=== PATIENT | male | born 1970 | race Two or more races ===

== ENCOUNTER 2024-11-26 16:25 | Emergency (ER) | payer MEDICAID, OTHER ==
[~2024-11-26] VITALS: Ht 182.9 cm; Wt 97.8 kg
[2024-11-26] MEDS ORDERED: CEFD300C2 PO (16:46)
--- NOTE | 2024-11-26 16:56 | ED.PDOC ---
History of Present Illness HPI Comments 54 y/o M, with PMhx of DM and ESRD presents to the ED for CC of wound check. Patient states, he has a friction burn to his left planter foot which has not resolved xdays. Patient reports, being seen [facility] for symptoms and being placed on antibiotics however, symptoms have persisted. Patient denies active bleeding to site, discharge to site, foot or leg swelling, or fever. No other symptoms or modifying factors present at this time. Chief Complaint: Wound Check Time Seen by MD: 16:50 Reviewed Notes: Nurses Notes, Medications, Allergies Home Meds Active Scripts Cefdinir (Cefdinir) 300 Mg Cap, 1 CAP PO BID for 7 Days, #14 CAP Prov:JESSICA LEVINE MD 11/26/24 Information Source: Patient Mode of Arrival: Ambulatory Severity: Moderate Timing: Days Duration: Since onset Prehospital treatment: None Past Medical History PAST MEDICAL HISTORY: DM, ESRD Surgical History: Denies all surgeries Family History Family History: Unknown Social History Smoker: Non-Smoker Alcohol: Denies ETOH Use Drugs: Denies Drug Use Lives In: Home Constitutional: denies: chills, diaphoresis, fatigue, fever, malaise, sweats, weakness, others EENTM: denies: blurred vision, double vision, ear bleeding, ear discharge, ear drainage, ear pain, ear ringing, eye pain, eye redness, hearing loss, mouth pain, mouth swelling, nasal discharge, nose bleeding, nose congestion, nose pain, photophobia, tearing, throat pain, throat swelling, voice changes, others Respiratory: denies: cough, hemoptysis, orthopnea, SOB at rest, shortness of breath, SOB with excertion, stridor, wheezing, others Cardiovascular: denies: chest pain, dizzy spells, diaphoresis, Dyspnea on exertion, edema, irregular heart beat, left arm pain, lightheadedness, palp itations, PND, syncope, others Gastrointestinal: denies: abdomen distended, abdominal pain, blood streaked bowels, constipated, diarrhea, dysphagia, difficulty swallowing, hematemesis, melena, nausea, poor appetite, poor fluid intake, rectal bleeding, rectal pain, vomiting, others Genitourinary: denies: burning, dysuria, flank pain, frequency, hematuria, incontinence, penile discharge, penile sore, pain, testicle pain, testicle swelling, urgency, others Neurological: denies: dizziness, fainting, headache, left sided numbness, left sided weakness, numbness, paresthesia, pre-existing deficit, right sided numbness, right sided weakness, seizure, speech problems, tingling, tremors, weakness, others Musculoskeletal: reports: others (LEFT FOOT PAIN); denies: back pain, gout, joint pain, joint swelling, muscle pain, muscle stiffness, neck pain Integumetry: denies: bruises, change in color, change in hair/nails, dryness, laceration, lesions, lumps, rash, wounds, others Allergic/Immunocompromised: denies: Difficulty Healing, Frequent Infections, Hives, Itching, others Hematologic/Lymphatic: denies: anemia, blood clots, easy bleeding, easy bruising, swollen glands, others Endocrine: denies: excessive hunger, excessive sweating, excessive thirst, excessive urination, flushing, intolerance to cold, intolerance to heat, unexplained weight gain, unexplained weight loss, others Psychiatric: denies: anxiety, bipolar disorder, depression, hopeless, panic disorder, schizophrenia, sleepless, suicidal, others All Other Systems: Reviewed and Negative Physical Exam General Appearance: No Apparent Distress HEENT: Normal ENT Inspection, PERRL/EOMI Neck: Full Range of Motion, Non-Tender, Normal, Normal Inspection Respiratory: Chest Non-Tender, Lungs Clear, No Accessory Muscle Use, No Respiratory Distress, Normal Breath Sounds Cardiovascular: No Edema, No JVD, No Murmur, No Gallop, Normal Peripheral Pulses, Regular Rate/Rhythm Breast Exam: Deferred Gastrointestinal: No Organomegaly, Non Tender, No Pulsatile Mass, Normal Bowel Sounds, Soft Genitalia: Deferred Pelvic: Deferred Rectal: Deferred Extremities: No calf tenderness, Normal capillary refill, Normal inspection, Normal range of motion, Non-tender, No pedal edema Musculoskeletal : Location: Left Extremity Location: Foot, Great Toe, Toe 2, Toe 3, Toe 4 Apperance: Swelling, Limited ROM, Tenderness: Mild, NOT DONE (Friction rub possible burn on all the phalanges on the toes which arediscolored went to the urgent care was treated but is healing slowly) Neurologic: Alert, lurer II-XII nml as Tested, No Motor Deficits, Normal Affect, Normal Mood, No Sensory Deficits Cerebellar Function: Normal Reflexes: Normal Skin: Diaphoresis Peripheral Pulses: 1+ carotid (R), 1+ carotid (L) Lymphatic: No Adenopathy Was a procedure done? 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 Education/Counseling: Diagnosis, Treatment, Prognosis, Need For Follow Up Family Education/Counseling: Diagnosis, Treatment, Prognosis, Need For Follow Up, No Family Present Departure 1 Departure Time of Disposition: 17:03 Impression: Primary Impression: Burn of all toes of left foot Disposition: 01 HOME / SELF CARE / HOMELESS Condition: Fair e-Prescriptions Cefdinir (Cefdinir) 300 Mg Cap 1 CAP PO BID for 7 Days, #14 CAP Prov: JESSICA LEVINE MD 11/26/24 Discharged With: Self Critical Care Note Critical Care Time?: No Stability Stability form required: No Heart Score Heart Score: Heart Score Response (Comments) Value History N/A 0 EKG N/A 0 Age 45-64 1 Risk Factors 1 or 2 risk factors 1 Troponin N/A 0 Total 2 I personally scribed for JESSICA LEVINE MD ([email or web address]) on 11/26/24 at 16:56. Electronically submitted by Belia Carlson ([email or web address]). JESSICA LEVINE MD Nov 26, 2024 16:56
[2024-11-26 17:27] VITALS: BP 115/71; PULSE 92; RESP 16; TEMP 98.1; O2SAT 96
== END 2024-11-26 17:28 | disposition home or self-care (01) ==
LOC: ER 16:25
DX: T25.032A Burn of unspecified degree of left toe(s) (nail), initial encounter (principal); X08.8XXA Exposure to other specified smoke, fire and flames, initial encounter; Y93.89 Activity, other specified; Y92.89 Other specified places as the place of occurrence of the external cause; Y99.8 Other external cause status; E11.22 Type 2 diabetes mellitus with diabetic chronic kidney disease; N18.6 End stage renal disease; Z99.2 Dependence on renal dialysis; Z79.899 Other long term (current) drug therapy
CPT/HCPCS: 82947; 82962

== ENCOUNTER 2025-02-25 15:06 | Inpatient (IN) | payer MEDICAID ==
[~2025-02-25] VITALS: Ht 182.9 cm; Wt 95.2 kg
[~2025-02-25 15:06] MED LIST: CEFD300C2 PO
--- NOTE | 2025-02-25 15:26 | ECG ---
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
--- NOTE | 2025-02-25 16:05 | ED.PDOC ---
SOB-HPI HPI Comments 55y M who presents to the ED for chief complaint of flu-like symptoms. Pt states he has been having flu-like symptoms since Sunday. Pt has been having fever 102 F with chills, and states he took Tylenol and fever broke Sunday. Pt states Sunday, he started to have diarrhea with associated UTI symptoms including dysuria, urgency and frequency with associated abdominal cramping. Pt states today, he noticed blood in his urine stream and came to the ED for further evaluation. Pt in the ED, states he has history of DM, CKD stage 4 not on dialysis HTN and HLD and states due to his recent symptoms, he has not been taking his regular medications. Pt has otherwise stable vitals in the ED. Pt denies any other symptoms at this time. Chief Complaint: Flu like Time Seen by MD: 16:01 Primary Care Provider: Tomi Galarza notes: Medications, Allergies Information Source: Patient, Relative Mode of Arrival: Ambulatory Brought in by: daughter Severity: Moderate Timing: Days Duration: Since onset PE Risk Factors: None History of: Recent URI Prehospital treatment: None Modifying Factors: Nothing Associated Signs and Symptoms: Fever If cough with SOB: Non-Productive Past Medical History PAST MEDICAL HISTORY: CKF, DM, ESRD, High Lipids, HTN Surgical History: Denies all surgeries Family History Family History: Family hx of DM, Family hx of Cancer Social History Smoker: Non-Smoker Alcohol: Denies ETOH Use Drugs: Denies Drug Use Lives In: Home Constitutional: reports: chills, fever; denies: diaphoresis, fatigue, malaise, sweats, weakness, others EENTM: denies: blurred vision, double vision, ear bleeding, ear discharge, ear drainage, ear pain, ear ringing, eye pain, eye redness, hearing loss, mouth pain, mouth swelling, nasal discharge, nose bleeding, nose congestion, nose pain, photophobia, tearing, throat pain, throat swelling, voice changes, others Respiratory: denies: cough, hemoptysis, orthopnea, SOB at rest, shortness of breath, SOB with excertion, stridor, wheezing, others Cardiovascular: denies: chest pain, dizzy spells, diaphoresis, Dyspnea on exertion, edema, irregular heart beat, left arm pain, lightheadedness, palpitations, PND, syncope, others Gastrointestinal: reports: abdominal pain, diarrhea; denies: abdomen distended, blood streaked bowels, constipated, dysphagia, difficulty swallowing, hematemesis, melena, nausea, poor appetite, poor fluid intake, rectal bleeding, rectal pain, vomiting, others Genitourinary: reports: dysuria, frequency; denies: burning, flank pain, hematuria, incontinence, penile discharge, penile sore, pain, testicle pain, testicle swelling, urgency, others Neurological: denies: dizziness, fainting, headache, left sided numbness, left sided weakness, numbness, paresthesia, pre-existing deficit, right sided numbness, right sided weakness, seizure, speech problems, tingling, tremors, weakness, others Musculoskeletal: denies: back pain, gout, joint pain, joint swelling, muscle pain, muscle stiffness, neck pain, others Integumetry: denies: bruises, change in color, change in hair/nails, dryness, laceration, lesions, lumps, rash, wounds, others Allergic/Immunocompromised: denies: Difficulty Healing, Frequent Infections, Hives, Itching, others Hematologic/Lymphatic: denies: anemia, blood clots, easy bleeding, easy bruising, swollen glands, others Endocrine: denies: excessive hunger, excessive sweating, excessive thirst, excessive urination, flushing, intolerance to cold, intolerance to heat, unexplained weight gain, unexplained weight loss, others Psychiatric: denies: anxiety, bipolar disorder, depression, hopeless, panic disorder, schizophrenia, sleepless, suicidal, others All Other Systems: Reviewed and Negative Physical Exam General Appearance: Moderate Distress HEENT: Normal ENT Inspection, Pharynx Normal, TMs Normal Neck: Full Range of Motion, Non-Tender, Normal, Normal Inspection Respiratory: Chest Non-Tender, Lungs Clear, No Accessory Muscle Use, No Respiratory Distress, Normal Breath Sounds Cardiovascular: No Edema, No JVD, No Murmur, No Gallop, Normal Peripheral Pulses, Regular Rate/Rhythm Breast Exam: Deferred Gastrointestinal: No Organomegaly, Non Tender, No Pulsatile Mass, Normal Bowel Sounds, Soft Genitalia: Deferred Pelvic: Deferred Rectal: Deferred Extremities: No calf tenderness, Normal capillary refill, Normal inspection, Normal range of motion, Non-tender, No pedal edema Musculoskeletal : Apperance: Normal Neurologic: Alert, bank operations officer II-XII nml as Tested, No Motor Deficits, Normal Affect, Normal Mood, No Sensory Deficits Cerebellar Function: Normal Reflexes: Normal Skin: Dry, Normal Color, Warm Lymphatic: No Adenopathy EKG EKG : Pulse Rate (adult): 90 [place]: Normal Cardiac Rhythm: NSR Block: None Hypertrophy: None ST: Normal Was a procedure done? Was a procedure done?: No Differential Dx Differential Diagnosis: Bronchitis, CHF, Pneumonia, URI Comments COVID, Influenza A and B, UTI, CKD, dehydration, uremia, X-Ray, Labs, Meds, VS Vital Signs Date Time Temp Pulse Resp B/P (MAP) Pulse Ox O2 Delivery O2 Flow Rate FiO2 02/25/25 16:05 90 02/25/25 15:16 90 02/25/25 15:08 98.7 93 18 121/77 98 98.7 Lab Test 02/25/25 18:31 02/25/25 16:01 02/25/25 15:21 Range/Units SARS-CoV-2 Antigen (Rapid) Negative NEGATIVE White Blood Count 8.3 4.4-10.8 10^3/uL Red Blood Count 4.34 L 4.5-5.90 10^6/uL Hemoglobin 12.6 L 13.5-17.5 g/dL Hematocrit 37.0 L 41.0-53.0 % Mean Corpuscular Volume 85.1 80.0-100.0 fL Mean Corpuscular Hemoglobin 29.0 28.0-32.0 pg Mean Corpuscular Hemoglobin Concent 34.0 32.0-36.0 g/dL Red Cell Distribution Width 14.9 H 11.8-14.3 % Platelet Count 219 140-450 10^3/uL Mean Platelet Volume 8.6 6.9-10.8 fL Neutrophils (%) (Auto) 37.0-80.0 % Lymphocytes (%) (Auto) 10.0-50.0 % Monocytes (%) (Auto) 0.0-12.0 % Basophils (%) (Auto) 0.0-2.0 % Neutrophils # (Auto) 1.6-8.6 10 ^3/uL Lymphocytes # (Auto) 0.4-5.4 10 ^3/uL Monocytes # (Auto) 0-1.3 10 ^3/uL Differential Total Cells Counted Pending Neutrophils % (Manual) Pending Band Neutrophils % (Manual) Pending Lymphocytes % (Manual) Pending Monocytes % (Manual) Pending Eosinophils % (Manual) Pending Basophils % (Manual) Pending Metamyelocytes % (manual) Pending Myelocytes % (Manual) Pending Promyelocytes % (Manual) Pending Blast Cells % (Manual) Pending Reactive Lymphocytes Pending Platelet Estimate Pending Sodium Level 134 L 136-145 mmol/L Potassium Level 4.1 3.5-5.1 mmol/L Chloride Level 102 98-107 mmol/L Carbon Dioxide Level 22 20-31 mmol/L Anion Gap 10 5-15 Blood Urea Nitrogen 54 H 9-23 mg/dL Creatinine 3.51 H 0.700-1.30 mg/dL Glomerular Filtration Rate Calc 20 >90 mL/min BUN/Creatinine Ratio 15.4 10.0-20.0 Serum Glucose 259 H 74-106 mg/dL Calcium Level 8.1 L 8.7-10.4 mg/dL POC Glucose 280 H 70-106 mg/dl Current Medications Medications (Trade) Dose Ordered Sig/Ilene Route Start Time Stop Time Status Last Admin Sodium Chloride 500 ml @ 500 mls/hr Q1H ONCE IV 02/25/25 16:00 02/25/25 16:59 DC 02/25/25 17:50 Time of 1ST Reevaluation: 16:30 Reevaluation 1ST: Unchanged Patient Education/Counseling: Diagnosis, Treatment, Prognosis Family Education/Counseling: Diagnosis, Treatment, Prognosis SEPSIS Sepsis Screen Date sepsis recognized/suspect: Feb 25, 2025 Time Sepsis recognized/suspect: 1510 Recent Procedure: No On Antibiotic Therapy: No Respiratory Rate >20: No Heart Rate >90: Yes Temp<36 C (96.8 F) or >38.3 C: No SBP <90 or MAP <65 mmHG: No New Acute Mental Status Change: No Is the patient on CPAP, BIPAP,: No Physician Orders Complete Blood Count (02/25/25 15:47) Urinalysis (02/25/25 15:47) Heplock Iv (02/25/25 15:47) Manual Differential (02/25/25 16:01) Vital Signs Date Time Temp Pulse Resp B/P (MAP) Pulse Ox O2 Delivery O2 Flow Rate FiO2 02/25/25 16:05 90 02/25/25 15:16 90 02/25/25 15:08 98.7 93 18 121/77 98 98.7 Laboratory Tests Test 02/25/25 16:01 White Blood Count 8.3 10^3/uL (4.4-10.8) Medications Medications Dose Ordered Sig/Ilene Route Start Time Stop Time Status Last Admin Dose Admin Sodium Chloride 500 ml @ 500 mls/hr Q1H ONCE IV 02/25/25 16:00 02/25/25 16:59 DC 02/25/25 17:50 Departure 1 Departure Time of Disposition: 19:20 Impression: Primary Impression: Generalized weakness Additional Impressions: Autonomic dysfunction Uncontrolled diabetes mellitus Qualified Codes: E13.65 - Other specified diabetes mellitus with hyperglycemia ESRD due to hypertension Disposition: ADMITTED INPATIENT Admit to: Med Surg Condition: Fair Critical Care Note Critical Care Time?: No Stability Stability form required: Yes Unstable for transfer: ED Physician Assesment (Clinical assesment) Heart Score Heart Score: Heart Score Response (Comments) Value History N/A 0 EKG N/A 0 Age N/A 0 Risk Factors N/A 0 Troponin N/A 0 Total 0 I personally scribed for DESIRAE GARCIA MD ([email or web address]) on 02/25/25 at 16:05. Electronically submitted by Nirmala James ([email or web address]). DESIRAE GARCIA MD Feb 25, 2025 16:05
[2025-02-25 16:32] LABS: Hematocrit 37.0 % (41.0-53.0); Hemoglobin 12.6 g/dL (13.5-17.5); Mean Corpuscular Hemoglobin 29.0 pg (28.0-32.0); Mean Corpuscular Volume 85.1 fL (80.0-100.0)
[2025-02-25 16:35] LABS: Chloride 102 mmol/L (98-107); Potassium 4.1 mmol/L (3.5-5.1)
[2025-02-25 16:36] LABS: Anion Gap 10 (5-15); Carbon Dioxide 22 mmol/L (20-31)
[2025-02-25 16:37] LABS: Calcium 8.1 mg/dL (8.7-10.4); Sodium 134 mmol/L (136-145)
[2025-02-25 16:41] LABS: BUN/Creatinine Ratio 15.4 (10.0-20.0)
[2025-02-25 16:42] LABS: Blood Urea Nitrogen 54 mg/dL (9-23); Glucose 259 mg/dL (74-106)
[2025-02-25] MEDS: SODIUM CHLORIDE 0.9% 500 ML IV ONE (17:50)
[2025-02-25 19:15] LABS: COVID19 ANTIGEN SOFIA FIA NEGATIVE (NEGATIVE)
[2025-02-25 19:26] LABS: Anisocytosis Slight; Total Cells Counted 100.0 (100)
--- NOTE | 2025-02-25 22:17 | DVH ---
CLINICAL HISTORY: Coughing and shortness of breath TECHNIQUE: Chest 2 views of the chest were obtained. COMPARISON: None FINDINGS: The heart size and pulmonary vasculature are normal. The lungs are clear. No pleural effusion is pres ent. IMPRESSION: NO ACUTE CARDIOPULMONARY PROCESS.
[2025-02-25 22:32] LABS: Alanine Aminotransferase 38.0 U/L (7-40); Alkaline Phosphatase 87.0 U/L (46-116); Magnesium 2.5 mg/dL (1.6-2.6); Total Protein 7.8 g/dL (5.7-8.2)
[2025-02-25 22:33] LABS: Albumin 4.0 g/dL (3.2-4.8); Bilirubin, Direct 0.2 mg/dL (<0.3); Bilirubin, Total 0.5 mg/dL (0.2-1.0)
[2025-02-25] MEDS ORDERED: ACETAMINOPHEN 325 MG TAB PO PRN (22:45)
[2025-02-25] MEDS: SODIUM CHLORIDE 0.9% 1,000 ML IV ONE (22:45)
--- NOTE | 2025-02-25 23:05 | DVHHPRES ---
History of Present Illness Resident Creating Document: YOHANA BECKMAN RESIDENT History of Present Illness Mr. Clemons is a 55-year-old male with prior medical history of hypertension, type 2 diabetes mellitus, CKD stage 4, and hyperlipidemia who presents to the ED with chief complaint of flu-like symptoms. The patient states that on Sunday he had sudden onset of chills, fever measured at 102 F, persistent diarrhea, to medical episodes, body aches, and fatigue. He states these symptoms have slightly improved however he continues to have multiple episodes of diarrhea and achy generalized abdominal pain, intensity 7/10, without aggravating or relieving factors every day, reporting more than 8 episodes of diarrhea today alone. Additionally, he states to have dysuria, strong smelling urine, and changes in urinary color. He denies chest pain, rectal bleeding, palpitations, loss of consciousness, nausea, persistent vomiting, further febrile episodes, and other symptoms. Due to his symptoms and persistence of diarrhea the sought patient sought medical care at the emergency department. On evaluation in the ED, the patient was afebrile and vitals were stable. Initial labs show normocytic anemia, elevated monocytes, mild hyponatremia, creatinine 3.51, BUN 54, hyperglycemia, hypophosphatemia, and A1c of 7.5. UA is significant for UTI. The patient is influenza A, B, and COVID negative. Chest x-ray shows no acute cardiopulmonary process. the patient was started on IV antibiotics, IV Zofran, and IV fluids. He was admitted for further workup and monitoring. Cardiovascular: HTN, hyperipidemia Renal/: Chronic renal insuff Endocrine: Diabetes Past Surgical History: None Family History: None Smoke: No ALCOHOL: none Drugs: Marijuana (Refers occasional edible use) Lives: with Family Domestic Violence: Neg Review of Systems Review of Systems Constitutional: Refers 7 lb weight loss since Sunday and general fatigue, Denies fever and chills. HEENT: Denies changes in vision and hearing. Respiratory referss shortness of breath denies cough Cardiovascular: Denies chest discomfort or palpitations GI: Refers abdominal pain and persistent diarrhea Denies abdominal distention : Refers dysuria denies urinary frequency. Musculoskeletal: Denies symptoms Skin: Denies rash and pruritus. Neurological: denies dizziness headache vision or hearing problems Allergies: Coded Allergies: Ciprofloxacin (Verified Allergy, Unknown, 02/26/25) Lisinopril (Verified Allergy, Unknown, 11/26/24) Medications Current Medications Medications Dose Ordered Sig/Ilene Route Start Time Stop Time Status Last Admin Dose Admin Acetaminophen 325 mg Q4HP PRN PO 02/25/25 22:45 Pantoprazole Sodium 40 mg DAILY IV 02/26/25 10:00 Exam Vital Signs Vital Signs Date Time Temp Pulse Resp B/P (MAP) Pulse Ox O2 Delivery O2 Flow Rate FiO2 02/25/25 19:40 97.9 89 16 112/70 (84) 97 97.9 Exam General: The patient alert and oriented in person place and time. Patient following commands HEENT: Normocephalic, atraumatic, normal reactive pupils, EOM intact, pink conjunctiva, pink dry mucous membrane Respiratory/pulmonary: Bilateral chest expansion, no pain on palpation of chest wall, clear lungs bilaterally, vesicular murmurs present in almost all lung tavarez, no associated crackles or wheezes. Patient seems to get winded while walking. Cardiovascular: Normal RRR, normal S1 and S2, no murmurs Abdomen: Abdomen nondistended, increased bowel sounds, soft, there is no pain to palpation in any of the abdominal quadrants, no palpable masses. Extremities: No deformities, there is no peripheral edema present at the lower extremities, normal pulses Skin: No rashes or pruritus, there is no sacral edema present at this time. Neurological: Intact cranial nerves with no focal neurologic deficits Labs/Xrays Labs Test 02/25/25 21:59 02/25/25 18:31 02/25/25 16:01 02/25/25 15:21 Range/Units Lactic Acid Level 1.2 0.4-2.0 mmol/L SARS-CoV-2 Antigen (Rapid) Negative NEGATIVE White Blood Count 8.3 4.4-10.8 10^3/uL Red Blood Count 4.34 L 4.5-5.90 10^6/uL Hemoglobin 12.6 L 13.5-17.5 g/dL Hematocrit 37.0 L 41.0-53.0 % Mean Corpuscular Volume 85.1 80.0-100.0 fL Mean Corpuscular Hemoglobin 29.0 28.0-32.0 pg Mean Corpuscular Hemoglobin Concent 34.0 32.0-36.0 g/dL Red Cell Distribution Width 14.9 H 11.8-14.3 % Platelet Count 219 140-450 10^3/uL Mean Platelet Volume 8.6 6.9-10.8 fL Neutrophils (%) (Auto) 37.0-80.0 % Lymphocytes (%) (Auto) 10.0-50.0 % Monocytes (%) (Auto) 0.0-12.0 % Basophils (%) (Auto) 0.0-2.0 % Neutrophils # (Auto) 1.6-8.6 10 ^3/uL Lymphocytes # (Auto) 0.4-5.4 10 ^3/uL Monocytes # (Auto) 0-1.3 10 ^3/uL Differential Total Cells Counted 100.0 100 Neutrophils % (Manual) 35 L 37.0-80.0 Band Neutrophils % (Manual) 11 Lymphocytes % (Manual) 35 10.0-50.0 Monocytes % (Manual) 16 H 0-12 Eosinophils % (Manual) 3 0-7 Basophils % (Manual) 0 0.0-2.0 Metamyelocytes % (manual) 0 Myelocytes % (Manual) 0 Promyelocytes % (Manual) 0 Blast Cells % (Manual) 0 Reactive Lymphocytes 0 Platelet Estimate Adequate Anisocytosis (manual) Slight Sodium Level 134 L 136-145 mmol/L Potassium Level 4.1 3.5-5.1 mmol/L Chloride Level 102 98-107 mmol/L Carbon Dioxide Level 22 20-31 mmol/L Anion Gap 10 5-15 Blood Urea Nitrogen 54 H 9-23 mg/dL Creatinine 3.51 H 0.700-1.30 mg/dL Glomerular Filtration Rate Calc 20 >90 mL/min BUN/Creatinine Ratio 15.4 10.0-20.0 Serum Glucose 259 H 74-106 mg/dL Hemoglobin A1c 7.5 H <5.7 % A1C Calcium Level 8.1 L 8.7-10.4 mg/dL Phosphorus Level 2.1 L 2.4-5.1 mg/dL Magnesium Level 2.5 1.6-2.6 mg/dL Total Bilirubin 0.5 0.2-1.0 mg/dL Direct Bilirubin 0.2 <0.3 mg/dL Aspartate Amino Transferase (AST) 33 13-40 U/L Alanine Aminotransferase (ALT) 38 7-40 U/L Alkaline Phosphatase 87 46-116 U/L Total Protein 7.8 5.7-8.2 g/dL Albumin 4.0 3.2-4.8 g/dL Vitamin B12 Level 1764 H 211-911 pg/mL Vitamin D 25-Hydroxy 35.1 30.0-100 ng/mL POC Glucose 280 H 70-106 mg/dl SEPSIS Sepsis Screen Date sepsis recognized/suspect: Feb 25, 2025 Time Sepsis recognized/suspect: 1509 Recent Procedure: No On Antibiotic Therapy: No Respiratory Rate >20: No Heart Rate >90: Yes Temp<36 C (96.8 F) or >38.3 C: No SBP <90 or MAP <65 mmHG: No New Acute Mental Status Change: No Is the patient on CPAP, BIPAP,: No Physician Orders Urinalysis (02/25/25 15:47) Heplock Iv (02/25/25 15:47) Urine Bacterial Culture (02/25/25 21:41) Drug Screen (02/25/25 21:41) Chest Two Views Routine (02/25/25 21:41) Rapid Influenza A&B (02/25/25 21:41) Blood Culture (02/25/25 21:41) Thyroid Stimulating Hormone (02/25/25 21:41) Complete Blood Count (02/26/25 04:00) Basic Metabolic Panel (02/26/25 04:00) Admit (02/25/25 22:39) Allergies (02/25/25 22:39) Code Status (02/25/25 22:39) Acetaminophen Tablet (Tylenol Tablet) (02/25/25 22:45) Condition: Stable (02/25/25 22:39) Stat Ekg For Chest Pain (02/25/25 22:39) Notify Md Of Changes From Base (02/25/25 22:39) Emergency Dysrhythmia Protocol (02/25/25 22:39) Rhythm Strips Once Every Shift (02/25/25 22:39) Sodium Chloride 0.9% (02/25/25 22:45) Pantoprazole (Protonix) (02/26/25 10:00) Clostridium Difficile Toxin (02/25/25 22:44) Vital Signs Date Time Temp Pulse Resp B/P (MAP) Pulse Ox O2 Delivery O2 Flow Rate FiO2 02/25/25 19:40 97.9 89 16 112/70 (84) 97 97.9 02/25/25 16:05 90 02/25/25 15:16 90 02/25/25 15:08 98.7 93 18 121/77 98 98.7 Laboratory Tests Test 02/25/25 16:01 02/25/25 21:59 White Blood Count 8.3 10^3/uL (4.4-10.8) Lactic Acid Level 1.2 mmol/L (0.4-2.0) Medications Medications Dose Ordered Sig/Ilene Route Start Time Stop Time Status Last Admin Dose Admin Sodium Chloride 500 ml @ 500 mls/hr Q1H ONCE IV 02/25/25 16:00 02/25/25 16:59 DC 02/25/25 17:50 500 MLS/HR Assessment/Plan Assessment/Plan Assessment and Plan: Acute Infectious Gastroenteritis Dehydration due to above - NS 500 cc bolus once - NS 250 cc bolus once - Ceftriaxone 1 g IV daily - Metronidazole 500 mg IV q.8 hours - C diff testing has been ordered as the patient has been on 3 different antibiotic regimens since November - Blood cultures were ordered - Clear liquid diet LEDY on CDK stage 4 due to VMN/hemodynamically mediated - Monitor renal function - Avoid nephrotoxic drugs Acute cystitis with microscopic hematuria - Urine culture has been ordered - Ceftriaxone 1 g IV daily Mild hyponatremia, likely due to hypovolemia - Monitor sodium levels Hypophosphatemia, 2.1 - Replenish Normocytic Anemia, likely due to chronic disease -Monitor H and H Uncontrolled type 2 diabetes mellitus with hyperglycemia, HbA1c 7.5 -Mild SSI -Accu-cheks Hyperlipidemia - Continue Rosuvastatin 10 mg PO daily Hypertension - Continue Losartan 100 mg PO daily Diet: Clear liquid diet DVT prophylaxis: Heparin 5000 units q12 hours sc GI prophylaxis: Not indicated due to possible risk of C diff Case discussed with Dr. Cosme Goals of care discussed with the patient and his for over 28 minutes. FULL CODE. Plan discussed with: Patient, Spouse, Other (Nurses) My Orders Orders - YOHANA BECKMAN RESIDENT Procedure Category Date Status Time Urine Bacterial LUBA 02/25/25 Logged Culture 21:41 Drug Screen LAB 02/25/25 Logged 21:41 Chest Two Views XY 02/25/25 Resulted Routine 21:41 Rapid Influenza A&B LAB 02/25/25 Logged 21:41 Blood Culture LUBA 02/25/25 In Process 21:41 Thyroid Stimulating LAB 02/25/25 In Process Hormone 21:41 Complete Blood Count LAB 02/26/25 Verified 04:00 Basic Metabolic Panel LAB 02/26/25 Verified 04:00 Admit ADMIT 02/25/25 Transmitted 22:39 Allergies SPENCER 02/25/25 In Process 22:39 Code Status CODE 02/25/25 Transmitted 22:39 Acetaminophen Tablet PHA 02/25/25 In Process (Tylenol Tablet) 22:45 Condition: Stable SPENCER 02/25/25 In Process 22:39 Stat Ekg For Chest SPENCER 02/25/25 In Process Pain 22:39 Notify Md Of Changes SPENCER 02/25/25 In Process From Base 22:39 Emergency Dysrhythmia SPENCER 02/25/25 In Process Protocol 22:39 Rhythm Strips Once SPENCER 02/25/25 In Process Every Shift 22:39 Sodium Chloride 0.9% PHA 02/25/25 In Process 22:45 Pantoprazole PHA 02/26/25 In Process (Protonix) 10:00 Clostridium Difficile LUBA 02/25/25 Logged Toxin 22:44 Date of Service: Feb 25, 2025 Billing Provider: OTONIEL NOVAK MD Common Visit Codes: [id number] INP/OBS CARE (HIGH) Secondary Visit Codes: [id number] CARE PLAN 30 MINUTES YOHANA BECKMAN RESIDENT Feb 25, 2025 23:05 SINA ORTIZ RESIDENT Feb 26, 2025 08:47
[2025-02-25] MEDS: SODIUM PHOSPHATES 20 MEQ in SODIUM CHL 0.9% 100 ML IV ONE (23:15)
[2025-02-25 23:47] LABS: Urine Amorphous Crystal FEW /hpf (None Seen); Urine Protein, UAD 3+ (Negative)
[2025-02-26] VITALS (8 sets, daily range): BP systolic 103–137; BP diastolic 54–88; PULSE 82–92; RESP 14–20; TEMP 97.7–98.7; O2SAT 92–98
[2025-02-26 00:05] LABS: Amphetamine Screen, Urine Neg (NEGATIVE); Barbiturate Scree,Urine Neg (NEGATIVE); Benzodiazephine Screen, Urine Neg (NEGATIVE); Cannabinoid Screen, Urine Neg (NEGATIVE); Cocaine Screen, Urine Neg (NEGATIVE); Opiate Scree,Urine Neg (NEGATIVE); Phencyclidine Screen, Urine Neg (NEGATIVE)
[2025-02-26] MEDS: PANTOPRAZOLE 40 MG/10 ML VIAL INJ IV ONE (00:15)
[2025-02-26] MEDS ORDERED: EMPA1TAB3 PO (00:49)
[2025-02-26] MEDS ORDERED: B-COCAP34 OR (00:49)
[2025-02-26] MEDS ORDERED: CALC667C PO (00:49)
[2025-02-26] MEDS ORDERED: FLUT0.05 NAS (00:49)
[2025-02-26] MEDS ORDERED: LOSA-535 PO (00:49)
[2025-02-26] MEDS ORDERED: TIRZ5INJ SC (00:49)
[2025-02-26] MEDS ORDERED: ASPI-543 PO (00:49)
[2025-02-26] MEDS ORDERED: ROSU10TA16 PO (00:49)
[2025-02-26] MEDS ORDERED: GLIP10TA9 PO (00:49)
[2025-02-26] MEDS ORDERED: FAMO-12 PO (00:49)
[2025-02-26] MEDS ORDERED: SILD100T PO (00:51)
[2025-02-26] MEDS ORDERED: DEXTROSE (50%) 50ML SYRG IV PRN (05:15)
[2025-02-26] MEDS: ACCU-CHEK COMFORT CURVE STRIP VI SCH (05:52)
[2025-02-26] MEDS: InsuLIN REG 1unit/0.01ml Soln (100units/ml) SC SCH (05:52)
[2025-02-26 07:58] LABS: Hematocrit 30.9 % (41.0-53.0); Hemoglobin 10.7 g/dL (13.5-17.5); Mean Corpuscular Hemoglobin 29.0 pg (28.0-32.0); Mean Corpuscular Volume 84.2 fL (80.0-100.0); Nucleated Red Blood Cells % 0.0 %
[2025-02-26 08:03] LABS: Anion Gap 10 (5-15); Carbon Dioxide 22 mmol/L (20-31); Chloride 105 mmol/L (98-107); Potassium 4.1 mmol/L (3.5-5.1); Sodium 137 mmol/L (136-145)
[2025-02-26 08:05] LABS: Calcium 8.0 mg/dL (8.7-10.4)
[2025-02-26 08:09] LABS: BUN/Creatinine Ratio 13.1 (10.0-20.0); Blood Urea Nitrogen 51 mg/dL (9-23); Glucose 110 mg/dL (74-106)
[2025-02-26] MEDS: HEPARIN SODIUM (PORCINE) 5000 UNITS/ML 1ML VIAL SC SCH (08:48)
[2025-02-26] MEDS: ATORVASTATIN 20 MG TAB PO SCH (08:50)
[2025-02-26] MEDS: LOSARTAN POTASSIUM 50 MG TAB PO SCH (08:50)
[2025-02-26] MEDS ORDERED: PANTOPRAZOLE 40 MG/10 ML VIAL INJ IV SCH (10:00)
--- NOTE | 2025-02-26 14:32 | DVHPN2 ---
Reviewed: Care Plan, H&P, Labs, Medications, Previous Orders, Radiology Changes from previous H/P or p: No Changes General: Per HPI Objective Vitals Vital Signs Date Time Temp Pulse Resp B/P (MAP) Pulse Ox O2 Delivery O2 Flow Rate FiO2 02/26/25 12:38 98.0 91 18 137/81 (99) 97 98.0 02/26/25 00:02 Room Air* 0 21 Intake/Output Intake and Output 02/26/25 07:00 Intake Total 900 ml Balance 900 ml Intake Oral 400 ml IV Total 500 ml # Voids 1 # Bowel Movements 4 Medications Current Medications Medications Dose Ordered Sig/Ilene Route Start Time Stop Time Status Last Admin Dose Admin Acetaminophen 325 mg Q4HP PRN PO 02/25/25 22:45 Heparin Sodium (Porcine) 5,000 units Q12HR SC 02/26/25 10:00 02/26/25 08:48 5,000 UNITS Ceftriaxone Sodium 50 ml @ 100 mls/hr DAILY@0000 IV 02/27/25 00:00 Metronidazole 100 ml @ 100 mls/hr Q8HR IV 02/26/25 06:00 02/26/25 14:12 100 MLS/HR Diagnostic Test (Pha) 1 strip ACHS 02/26/25 07:00 02/26/25 11:23 1 STRIP Insulin Human Regular ACHS SC 02/26/25 07:00 Dextrose 50 ml UD PRN IV 02/26/25 05:15 Losartan Potassium 100 mg DAILY PO 02/26/25 10:00 02/26/25 08:50 100 MG Atorvastatin Calcium 20 mg DAILY PO 02/26/25 10:00 02/26/25 08:50 20 MG Aspirin 81 mg DAILY PO 02/26/25 10:00 02/26/25 08:50 81 MG Laboratory Results Laboratory Tests 02/26/25 06:30 Chemistry Test 02/25/25 16:01 02/26/25 06:30 Albumin 4.0 g/dL (3.2-4.8) Calcium Level 8.1 mg/dL (8.7-10.4) L 8.0 mg/dL (8.7-10.4) L Magnesium Level 2.5 mg/dL (1.6-2.6) Phosphorus Level 2.1 mg/dL (2.4-5.1) L Total Protein 7.8 g/dL (5.7-8.2) LFT Test 02/25/25 16:01 Alanine Aminotransferase (ALT) 38 U/L (7-40) Alkaline Phosphatase 87 U/L (46-116) Aspartate Amino Transferase (AST) 33 U/L (13-40) Direct Bilirubin 0.2 mg/dL (<0.3) Total Bilirubin 0.5 mg/dL (0.2-1.0) HgA1c, TSH Test 02/25/25 16:01 Hemoglobin A1c 7.5 % A1C (<5.7) H Thyroid Stimulating Hormone (TSH) 1.11 uIU/mL (0.55-4.78) Urinalysis Test 02/25/25 23:00 Urine Color Dark-orange (Yellow) Urine Clarity Turbid (Clear) H Urine pH 6.0 (5.0-9.0) Urine Specific [place] 1.014 (1.001-1.035) Urine Protein 3+ (Negative) H Urine Ketones Negative (Negative) Urine Blood Negative /uL (Negative) Urine Nitrite Negative (Negative) Urine Bilirubin Negative (Negative) Urine Urobilinogen Normal mg/dL (Negative) Urine Leukocyte Esterase Negative /uL (Negative) Urine RBC 22 /hpf (0 - 3) Urine Microscopic WBC 9 /HPF (0-3) H Urine Squamous Epithelial Cells None seen /hpf (<5) Urine Amorphous Crystals Few /hpf (None Seen) Urine Bacteria None seen /hpf (None Seen) Urine Hyaline Casts Mod /lpf (0 - 2) Urine Glucose 4+ mg/dL (Normal) H Microbiology Microbiology Date/Time Source Procedure Growth Status 02/26/25 02:34 Stool Stool Culture - Preliminary Resulted 02/26/25 02:34 Stool Shiga Toxin I & II - Final Resulted 02/25/25 23:00 Voided Urine Urine Culture - Preliminary Resulted Assessment/Plan Assessment/Plan Mr. Clemons is a 55-year-old male with prior medical history of hypertension, type 2 diabetes mellitus, CKD stage 4, and hyperlipidemia who presents to the ED with chief complaint of flu-like symptoms. The patient states that on Sunday he had sudden onset of chills, fever measured at 102 F, persistent diarrhea, to medical episodes, body aches, and fatigue. He states these symptoms have slightly improved however he continues to have multiple episodes of diarrhea and achy generalized abdominal pain, intensity 7/10, without aggravating or relieving factors every day, reporting more than 8 episodes of diarrhea today alone. Additionally, he states to have dysuria, strong smelling urine, and changes in urinary color. He denies chest pain, rectal bleeding, palpitations, loss of consciousness, nausea, persistent vomiting, further febrile episodes, and other symptoms. Due to his symptoms and persistence of diarrhea the sought patient sought medical care at the emergency department. On evaluation in the ED, the patient was afebrile and vitals were stable. Initial labs show normocytic anemia, elevated monocytes, mild hyponatremia, creatinine 3.51, BUN 54, hyperglycemia, hypophosphatemia, and A1c of 7.5. UA is significant for UTI. The patient is influenza A, B, and COVID negative. Acute Infectious Gastroenteritis Dehydration due to above - NS 500 cc bolus once - NS 250 cc bolus once - Ceftriaxone 1 g IV daily - Metronidazole 500 mg IV q.8 hours - C diff testing has been ordered as the patient has been on 3 different antibiotic regimens since November - Blood cultures were ordered - Clear liquid diet initially. advance diet as tolerated LEDY on CDK stage 4 due to VMN/hemodynamically mediated - Monitor renal function - Avoid nephrotoxic drugs Acute cystitis with microscopic hematuria - Urine culture has been ordered - Ceftriaxone 1 g IV daily Mild hyponatremia, likely due to hypovolemia - Monitor sodium levels Hypophosphatemia, 2.1 - Replenish Normocytic Anemia, likely due to chronic disease -Monitor H and H Uncontrolled type 2 diabetes mellitus with hyperglycemia, HbA1c 7.5 -Mild SSI -Accu-cheks Hyperlipidemia - Continue Rosuvastatin 10 mg PO daily Hypertension - Continue Losartan 100 mg PO daily Diet: Clear liquid diet DVT prophylaxis: Heparin 5000 units q12 hours sc GI prophylaxis: Not indicated due to possible risk of C diff Plan discussed with: Patient Date of Service: Feb 26, 2025 Billing Provider: JANI CARRIZALES DO Common Visit Codes: [id number] INP/OBS CARE(HIGH) JANI CARRIZALES DO Feb 26, 2025 14:32
[2025-02-27] VITALS (7 sets, daily range): BP systolic 115–165; BP diastolic 79–97; PULSE 86–91; RESP 16–20; TEMP 97.6–98.4; O2SAT 96–99
[2025-02-27 11:40] LABS: Hepatitis B Surface Antigen Negative (Negative)
[2025-02-27 12:45] LABS: Hepatitis C Antibody Negative (Negative)
--- NOTE | 2025-02-27 14:53 | DVHPN2 ---
Reviewed: Care Plan, H&P, Labs, Medications, Previous Orders, Radiology Changes from previous H/P or p: No Changes General: Per HPI Objective Vitals Vital Signs Date Time Temp Pulse Resp B/P (MAP) Pulse Ox O2 Delivery O2 Flow Rate FiO2 02/27/25 12:39 98.4 89 18 165/97 (119) 97 98.4 02/27/25 08:00 Room Air* 0 21 Intake/Output Intake and Output 02/27/25 07:00 Intake Total 2420 ml Balance 2420 ml Intake Oral 2070 ml IV Total 350 ml # Voids 3 # Bowel Movements 3 Medications Current Medications Medications Dose Ordered Sig/Ilene Route Start Time Stop Time Status Last Admin Dose Admin Acetaminophen 325 mg Q4HP PRN PO 02/25/25 22:45 Heparin Sodium (Porcine) 5,000 units Q12HR SC 02/26/25 10:00 02/27/25 09:52 5,000 UNITS Ceftriaxone Sodium 50 ml @ 100 mls/hr DAILY@0000 IV 02/27/25 00:00 02/27/25 00:08 100 MLS/HR Metronidazole 100 ml @ 100 mls/hr Q8HR IV 02/26/25 06:00 02/27/25 05:49 100 MLS/HR Diagnostic Test (Pha) 1 strip ACHS 02/26/25 07:00 02/27/25 11:30 1 STRIP Insulin Human Regular ACHS SC 02/26/25 07:00 Dextrose 50 ml UD PRN IV 02/26/25 05:15 Losartan Potassium 100 mg DAILY PO 02/26/25 10:00 02/27/25 09:52 100 MG Atorvastatin Calcium 20 mg DAILY PO 02/26/25 10:00 02/27/25 09:53 20 MG Aspirin 81 mg DAILY PO 02/26/25 10:00 02/27/25 09:53 81 MG Laboratory Results Laboratory Tests 02/26/25 06:30 Urinalysis Test 02/25/25 23:00 Urine Color Dark-orange (Yellow) Urine Clarity Turbid (Clear) H Urine pH 6.0 (5.0-9.0) Urine Specific [place] 1.014 (1.001-1.035) Urine Protein 3+ (Negative) H Urine Ketones Negative (Negative) Urine Blood Negative /uL (Negative) Urine Nitrite Negative (Negative) Urine Bilirubin Negative (Negative) Urine Urobilinogen Normal mg/dL (Negative) Urine Leukocyte Esterase Negative /uL (Negative) Urine RBC 22 /hpf (0 - 3) Urine Microscopic WBC 9 /HPF (0-3) H Urine Squamous Epithelial Cells None seen /hpf (<5) Urine Amorphous Crystals Few /hpf (None Seen) Urine Bacteria None seen /hpf (None Seen) Urine Hyaline Casts Mod /lpf (0 - 2) Urine Glucose 4+ mg/dL (Normal) H Microbiology Microbiology Date/Time Source Procedure Growth Status 02/26/25 02:34 Stool Stool Culture - Preliminary Resulted 02/26/25 02:34 Stool Shiga Toxin I & II - Final Resulted 02/25/25 23:00 Voided Urine Urine Culture - Preliminary Resulted 02/25/25 22:01 Blood Blood Culture - Preliminary NO GROWTH AFTER 24 HOURS OF INCUBATION. Resulted Assessment/Plan Assessment/Plan Mr. Clemons is a 55-year-old male with prior medical history of hypertension, type 2 diabetes mellitus, CKD stage 4, and hyperlipidemia who presents to the ED with chief complaint of flu-like symptoms. The patient states that on Sunday he had sudden onset of chills, fever measured at 102 F, persistent diarrhea, to medical episodes, body aches, and fatigue. He states these symptoms have slightly improved however he continues to have multiple episodes of diarrhea and achy generalized abdominal pain, intensity 7/10, without aggravating or relieving factors every day, reporting more than 8 episodes of diarrhea today alone. Additionally, he states to have dysuria, strong smelling urine, and changes in urinary color. He denies chest pain, rectal bleeding, palpitations, loss of consciousness, nausea, persistent vomiting, further febrile episodes, and other symptoms. Due to his symptoms and persistence of diarrhea the sought patient sought medical care at the emergency department. On evaluation in the ED, the patient was afebrile and vitals were stable. Initial labs show normocytic anemia, elevated monocytes, mild hyponatremia, creatinine 3.51, BUN 54, hyperglycemia, hypophosphatemia, and A1c of 7.5. UA is significant for UTI. The patient is influenza A, B, and COVID negative. Acute Infectious Gastroenteritis Dehydration due to above acute abd pain - NS 500 cc bolus once - NS 250 cc bolus once - Ceftriaxone 1 g IV daily - Metronidazole 500 mg IV q.8 hours - C diff testing has been ordered as the patient has been on 3 different antibiotic regimens since November - Blood cultures were ordered - Clear liquid diet initially. advance diet as tolerated -- abd pain is improving LEDY on CDK stage 4 due to VMN/hemodynamically mediated - Monitor renal function - Avoid nephrotoxic drugs Acute cystitis with microscopic hematuria - Urine culture has been ordered - Ceftriaxone 1 g IV daily Mild hyponatremia, likely due to hypovolemia - Monitor sodium levels Hypophosphatemia, 2.1 - Replenish Normocytic Anemia, likely due to chronic disease -Monitor H and H Uncontrolled type 2 diabetes mellitus with hyperglycemia, HbA1c 7.5 -Mild SSI -Accu-cheks Hyperlipidemia - Continue Rosuvastatin 10 mg PO daily Hypertension - Continue Losartan 100 mg PO daily Diet: Clear liquid diet DVT prophylaxis: Heparin 5000 units q12 hours sc GI prophylaxis: Not indicated due to possible risk of C diff Plan discussed with: Patient My Orders Orders - JANI CARRIZALES DO Procedure Category Date Status Time * Infectious [place]- CONS 02/26/25 Transmitted Jo 16:11 * Wound Consult CONS 02/27/25 Transmitted Date of Service: Feb 27, 2025 Billing Provider: JANI CARRIZALES DO Common Visit Codes: [id number] INP/OBS CARE(HIGH) JANI CARRIZALES DO Feb 27, 2025 14:53
[2025-02-28] VITALS (8 sets, daily range): BP systolic 153–172; BP diastolic 91–110; PULSE 65–99; RESP 17–19; TEMP 97–98; O2SAT 97–98
[2025-02-28] MEDS: hydrALAZINE HCL 20 MG/ML VL IV PRN (17:10)
--- NOTE | 2025-02-28 18:48 | DVHINCON2 ---
Date of service: Feb 27, 2025 Referring Physician Sree Kyle MD Reason for Consultation CKD History of Present Illness Julio Clemons is a a 55-year-old male with Past Medical History pertinent for Hypertension, Type 2 Diabetes Mellitus, CKD stage 4 and Hyperlipidemia who presented to the hospital with chief complaint of flu-like symptoms. Patient reported having sudden onset of chills, fever with Tmax 102 F, persistent diarrhea, body aches and fatigue since 02/21/25. Patient also reported having dysuria, strong smelling urine and changes in urinary color. He denies chest pain, rectal bleeding, palpitations, loss of consciousness, nausea, persistent vomiting or further febrile episodes. While in ED, patient was afebrile and vitals were stable. Initial labs showed normocytic anemia, elevated monocytes, mild hyponatremia, Creatinine 3.51, BUN 54. HgbA1c of 7.5. UA was positive for UTI. Influenza A, B, and COVID negative. Chest x-ray reported no acute cardiopulmonary process. Latest labs drawn on 02/26/2025 reported Creatinine of 3.89 with BUN of 51. K is wnl. Prelim stool cultures reported growth of Shigella species. Allergies: Coded Allergies: Ciprofloxacin (Verified Allergy, Unknown, 02/26/25) Lisinopril (Verified Allergy, Unknown, 11/26/24) Home Meds Active Scripts Cefdinir (Cefdinir) 300 Mg Cap, 1 CAP PO BID for 7 Days, #14 CAP Prov:JESSICA LEVINE MD 11/26/24 Reported Medications Sildenafil Citrate (Viagra) 100 Mg Tab, 1 TAB PO EVERY OTHER DAY, #6 TAB 11 Refills 02/26/25 Calcium Acetate (Phosphate Bin (Calcium Acetate) 667 Mg Cap, 667 MG PO BID for 30 Days, MG 02/26/25 B-Complex Vitamins (B Complex) Cap, 1 OR, CAP 02/26/25 Aspirin (Aspir-Low) 81 Mg Tab, 81 MG PO DAILY for 30 Days, MG 02/26/25 Tirzepatide (Mounjaro) 5 Mg/0.5 Ml Inj, 5 MG SC, INJ 02/26/25 Fluticasone Propionate (Fluticasone Propionate) 0.05 % Cre, 50 MCG BERNARD DAILY for 30 Days, MCG 02/26/25 Famotidine (Famotidine) 20 Mg Tab, 20 MG PO DAILY for 30 Days, MG 02/26/25 Glipizide (Glipizide) 10 Mg Tab, 10 MG PO DAILY for 30 Days, MG 02/26/25 Empagliflozin (Jardiance) 25 Mg Tab, 25 MG PO DAILY, TAB 02/26/25 Rosuvastatin Calcium (Crestor) 10 Mg Tab, 10 TAB PO DAILY, #30 TAB 5 Refills 02/26/25 Losartan Potassium (Losartan Potassium) 100 Mg Tab, 100 MG PO DAILY for 30 Days, MG 02/26/25 Current Medications Current Medications Medications (Trade) Dose Ordered Sig/Ilene Route PRN Reason Start Time Stop Time Status Last Admin Hydralazine HCl (Apresoline Injection) 10 mg Q4HPRN PRN IV SBP>160 02/28/25 16:45 02/28/25 17:10 Family History: Asthma 19 CHILD Diabetes mellitus G8 FATHER, , Not a twin FH: alcoholism G8 BROTHER FH: breast cancer G8 MOTHER FH: obesity G8 BROTHER FH: schizophrenia G8 BROTHER Hypertension G8 FATHER, , Not a twin Thyroid disease 19 CHILD Review of Systems Constitutional: Positive for 7lb weight loss since onset of symptoms and general fatigue. Denies fever and chills. Respiratory: Positive for shortness of breath denies cough. Cardiovascular: Denies chest discomfort or palpitations. GI: Positive for abdominal pain and persistent diarrhea Denies abdominal distention. : Positive for dysuria denies urinary frequency. Skin: Denies rash and pruritus. Neurological: Denies dizziness headache vision or hearing problems. All other systems reviewed and negative unless otherwise noted in HPI. H&P Exam Vital Signs/I&O Vital Sign Date Time Temp Pulse Resp B/P (MAP) Pulse Ox O2 Delivery O2 Flow Rate FiO2 02/28/25 17:10 170/99 02/28/25 16:31 97.9 90 19 98 97.9 02/28/25 08:00 Room Air* 0 21 Intake and Output 02/27/25 02/28/25 19:00 07:00 Intake Total 1260 ml 820 ml Balance 1260 ml 820 ml Intake Oral 1160 ml 820 ml IV Total 100 ml # Voids 4 3 # Bowel Movements 5 2 Physical Exam Vitals and nursing notes reviewed. General: In no acute distress. HEENT: Normocephalic, atraumatic, normal reactive pupils, EOM intact, pink conjunctiva, pink dry mucous membrane. Respiratory/pulmonary: Bilateral chest expansion, no pain on palpation of chest wall, clear lungs bilaterally, vesicular murmurs present in almost all lung tavarez, no associated crackles or wheezes. Cardiovascular: Normal RRR, normal S1 and S2, no murmurs Abdomen: Abdomen nondistended, increased bowel sounds, soft, there is no pain to palpation in any of the abdominal quadrants, no palpable masses. Extremities: No deformities, there is no peripheral edema present at the lower extremities, normal pulses Skin: No rashes or pruritus, there is no sacral edema present at this time. Neurological: Intact cranial nerves with no focal neurologic deficits. Patient is alert and oriented in person place and time. Labs/Diagnostic Data Labs/Diagnostic Data Laboratory Tests Test 02/28/25 16:57 02/28/25 11:36 02/28/25 04:40 02/27/25 20:03 Range/Units POC Glucose 89 100 90 130 H 70-106 mg/dl Test 02/27/25 16:28 02/27/25 11:25 02/27/25 05:55 02/26/25 21:14 Range/Units POC Glucose 124 H 126 H 112 H 159 H 70-106 mg/dl Test 02/26/25 16:17 02/26/25 10:57 02/26/25 06:30 02/26/25 05:50 Range/Units POC Glucose 139 H 146 H 133 H 70-106 mg/dl White Blood Count 9.3 4.4-10.8 10^3/uL Red Blood Count 3.67 L 4.5-5.90 10^6/uL Hemoglobin 10.7 #L 13.5-17.5 g/dL Hematocrit 30.9 #L 41.0-53.0 % Mean Corpuscular Volume 84.2 80.0-100.0 fL Mean Corpuscular Hemoglobin 29.0 28.0-32.0 pg Mean Corpuscular Hemoglobin Concent 34.5 32.0-36.0 g/dL Red Cell Distribution Width 14.9 H 11.8-14.3 % Platelet Count 211 140-450 10^3/uL Mean Platelet Volume 8.7 6.9-10.8 fL Neutrophils (%) (Auto) 56.1 37.0-80.0 % Lymphocytes (%) (Auto) 27.6 10.0-50.0 % Monocytes (%) (Auto) 14.0 H 0.0-12.0 % Eosinophils (%) (Auto) 1.9 0.0-7.0 % Basophils (%) (Auto) 0.4 0.0-2.0 % Neutrophils # (Auto) 5.2 1.6-8.6 10 ^3/uL Lymphocytes # (Auto) 2.6 0.4-5.4 10 ^3/uL Monocytes # (Auto) 1.3 0-1.3 10 ^3/uL Eosinophils # (Auto) 0.2 0-0.8 10 ^3/uL Basophils # (Auto) 0 0-0.2 10 ^3/uL Nucleated Red Blood Cells 0.0 % Sodium Level 137 136-145 mmol/L Potassium Level 4.1 3.5-5.1 mmol/L Chloride Level 105 98-107 mmol/L Carbon Dioxide Level 22 20-31 mmol/L Anion Gap 10 5-15 Blood Urea Nitrogen 51 H 9-23 mg/dL Creatinine 3.89 H 0.700-1.30 mg/dL Glomerular Filtration Rate Calc 18 >90 mL/min BUN/Creatinine Ratio 13.1 10.0-20.0 Serum Glucose 110 #H 74-106 mg/dL Calcium Level 8.0 L 8.7-10.4 mg/dL Hepatitis B Surface Antigen Negative Negative Hepatitis C Antibody Negative Negative Test 02/26/25 02:34 02/25/25 23:21 02/25/25 23:00 02/25/25 21:59 Range/Units Stool for White Cells Many Influenza Type A Antigen Negative Negative Influenza Type B Antigen Negative Negative Urine Color Dark-orange Yellow Urine Clarity Turbid H Clear Urine pH 6.0 5.0-9.0 Urine Specific [place] 1.014 1.001-1.035 Urine Protein 3+ H Negative Urine Ketones Negative Negative Urine Blood Negative Negative /uL Urine Nitrite Negative Negative Urine Bilirubin Negative Negative Urine Urobilinogen Normal Negative mg/dL Urine Leukocyte Esterase Negative Negative /uL Urine RBC 22 0 - 3 /hpf Urine Microscopic WBC 9 H 0-3 /HPF Urine Squamous Epithelial Cells None seen <5 /hpf Urine Amorphous Crystals Few None Seen /hpf Urine Bacteria None seen None Seen /hpf Urine Hyaline Casts Mod 0 - 2 /lpf Urine Glucose 4+ H Normal mg/dL Urine Opiates Screen Neg NEGATIVE Urine Fentanyl Screen Neg NEGATIVE Urine Barbiturates Screen Neg NEGATIVE Urine Phencyclidine Screen Neg NEGATIVE Urine Amphetamines Screen Neg NEGATIVE Urine Benzodiazepines Screen Neg NEGATIVE Urine Cocaine Screen Neg NEGATIVE Urine Cannabinoids Screen Neg NEGATIVE Lactic Acid Level 1.2 0.4-2.0 mmol/L Test 02/25/25 18:31 02/25/25 16:01 02/25/25 15:21 Range/Units SARS-CoV-2 Antigen (Rapid) Negative NEGATIVE White Blood Count 8.3 4.4-10.8 10^3/uL Red Blood Count 4.34 L 4.5-5.90 10^6/uL Hemoglobin 12.6 L 13.5-17.5 g/dL Hematocrit 37.0 L 41.0-53.0 % Mean Corpuscular Volume 85.1 80.0-100.0 fL Mean Corpuscular Hemoglobin 29.0 28.0-32.0 pg Mean Corpuscular Hemoglobin Concent 34.0 32.0-36.0 g/dL Red Cell Distribution Width 14.9 H 11.8-14.3 % Platelet Count 219 140-450 10^3/uL Mean Platelet Volume 8.6 6.9-10.8 fL Neutrophils (%) (Auto) 37.0-80.0 % Lymphocytes (%) (Auto) 10.0-50.0 % Monocytes (%) (Auto) 0.0-12.0 % Basophils (%) (Auto) 0.0-2.0 % Neutrophils # (Auto) 1.6-8.6 10 ^3/uL Lymphocytes # (Auto) 0.4-5.4 10 ^3/uL Monocytes # (Auto) 0-1.3 10 ^3/uL Differential Total Cells Counted 100.0 100 Neutrophils % (Manual) 35 L 37.0-80.0 Band Neutrophils % (Manual) 11 Lymphocytes % (Manual) 35 10.0-50.0 Monocytes % (Manual) 16 H 0-12 Eosinophils % (Manual) 3 0-7 Basophils % (Manual) 0 0.0-2.0 Metamyelocytes % (manual) 0 Myelocytes % (Manual) 0 Promyelocytes % (Manual) 0 Blast Cells % (Manual) 0 Reactive Lymphocytes 0 Platelet Estimate Adequate Anisocytosis (manual) Slight Sodium Level 134 L 136-145 mmol/L Potassium Level 4.1 3.5-5.1 mmol/L Chloride Level 102 98-107 mmol/L Carbon Dioxide Level 22 20-31 mmol/L Anion Gap 10 5-15 Blood Urea Nitrogen 54 H 9-23 mg/dL Creatinine 3.51 H 0.700-1.30 mg/dL Glomerular Filtration Rate Calc 20 >90 mL/min BUN/Creatinine Ratio 15.4 10.0-20.0 Serum Glucose 259 H 74-106 mg/dL Hemoglobin A1c 7.5 H <5.7 % A1C Calcium Level 8.1 L 8.7-10.4 mg/dL Phosphorus Level 2.1 L 2.4-5.1 mg/dL Magnesium Level 2.5 1.6-2.6 mg/dL Total Bilirubin 0.5 0.2-1.0 mg/dL Direct Bilirubin 0.2 <0.3 mg/dL Aspartate Amino Transferase (AST) 33 13-40 U/L Alanine Aminotransferase (ALT) 38 7-40 U/L Alkaline Phosphatase 87 46-116 U/L Total Protein 7.8 5.7-8.2 g/dL Albumin 4.0 3.2-4.8 g/dL Vitamin B12 Level 1764 H 211-911 pg/mL Vitamin D 25-Hydroxy 35.1 30.0-100 ng/mL Thyroid Stimulating Hormone (TSH) 1.11 0.55-4.78 uIU/mL POC Glucose 280 H 70-106 mg/dl Microbiology Date/Time Source Procedure Growth Status 02/25/25 23:00 Voided Urine Urine Culture - Final Complete Assessment Acute infectious Gastroenteritis LEDY on CKD Stage 4 due to VMN Acute cystitis with microscopic hematuria Mild hyponatremia Hypophosphatemia Normocytic Anemia, likely due to chronic disease Uncontrolled type 2 DM with hyperglycemia Hyperlipidemia Hypertension Plan/Recommendation Agreement with your ongoing assessment and plan of care. Daily lab monitoring to include renal function and electrolytes. Electrolyte replacement prn. Avoid nephrotoxins. Monitor Intake/Output. IV antibiotics with Ceftriaxone, Metronidazole. SSI. Accu-checks. Home BP meds resumed. Losartan 100 mg PO daily. ASA and Statin therapy. Pain management prn. DVT prophylaxis. Additional plan as per the hospital course. Plan discussed with: Patient, Other (RN) BRIE MCNAMARA DO Feb 28, 2025 18:48
--- NOTE | 2025-02-28 19:21 | DVHPN2 ---
Progress Note - Dictate Date Seen: Feb 28, 2025 Has the PT tested + for MRSA If YES, has PT been informed?: No Medical Necessity Reason Pt with a Central, PICC or Fol: No Subjective Patient was seen and evaluated in follow up. No acute events overnight. No new complaints. Diet has been advanced. Stool and blood cultures are showing positive for Shigella species. Pending eval with Infectious Disease. Pending new labs today. vital signs Vital Sign Date Time Temp Pulse Resp B/P (MAP) Pulse Ox O2 Delivery O2 Flow Rate FiO2 02/28/25 17:10 170/99 02/28/25 16:31 97.9 90 19 98 97.9 02/28/25 08:00 Room Air* 0 21 Total Intake and Output 02/27/25 02/27/25 02/28/25 15:00 23:00 07:00 Intake Total 520 ml 960 ml 600 ml Balance 520 ml 960 ml 600 ml medications Current Medications Medications Dose Ordered Sig/Ilene Route Start Time Stop Time Status Last Admin Dose Admin Acetaminophen 325 mg Q4HP PRN PO 02/25/25 22:45 Heparin Sodium (Porcine) 5,000 units Q12HR SC 02/26/25 10:00 02/28/25 10:53 5,000 UNITS Ceftriaxone Sodium 50 ml @ 100 mls/hr DAILY@0000 IV 02/27/25 00:00 02/28/25 00:40 100 MLS/HR Metronidazole 100 ml @ 100 mls/hr Q8HR IV 02/26/25 06:00 02/28/25 14:10 100 MLS/HR Diagnostic Test (Pha) 1 strip ACHS 02/26/25 07:00 02/28/25 17:04 1 STRIP Insulin Human Regular ACHS SC 02/26/25 07:00 Dextrose 50 ml UD PRN IV 02/26/25 05:15 Losartan Potassium 100 mg DAILY PO 02/26/25 10:00 02/28/25 10:46 100 MG Atorvastatin Calcium 20 mg DAILY PO 02/26/25 10:00 02/28/25 10:47 20 MG Aspirin 81 mg DAILY PO 02/26/25 10:00 02/28/25 10:46 81 MG Hydralazine HCl 10 mg Q4HPRN PRN IV 02/28/25 16:45 02/28/25 17:10 10 MG objective Vitals and nursing notes reviewed. General: In no acute distress. HEENT: Normocephalic, atraumatic, normal reactive pupils, EOM intact, pink conjunctiva, pink dry mucous membrane. Respiratory/pulmonary: Bilateral chest expansion, no pain on palpation of chest wall, clear lungs bilaterally, vesicular murmurs present in almost all lung tavarez, no associated crackles or wheezes. Cardiovascular: Normal RRR, normal S1 and S2, no murmurs Abdomen: Abdomen nondistended, increased bowel sounds, soft, there is no pain to palpation in any of the abdominal quadrants, no palpable masses. Extremities: No deformities, there is no peripheral edema present at the lower extremities, normal pulses Skin: No rashes or pruritus, there is no sacral edema present at this time. Neurological: Intact cranial nerves with no focal neurologic deficits. Patient is alert and oriented in person place and time. laboratory and microbiology Laboratory Tests 02/26/25 06:30 Test 02/26/25 06:30 Range/Units Serum Glucose 110 #H 74-106 mg/dL Problem List Acute infectious Gastroenteritis LEDY on CKD Stage 4 due to VMN Acute cystitis with microscopic hematuria Mild hyponatremia Hypophosphatemia Normocytic Anemia, likely due to chronic disease Uncontrolled type 2 DM with hyperglycemia Hyperlipidemia Hypertension Assessment/Plan Agree with current supportive medical care. F/u eval with ID. Daily lab monitoring to include renal function and electrolytes. Electrolyte replacement prn. Avoid nephrotoxins. Monitor Intake/Output. IV antibiotics with Ceftriaxone, Metronidazole. SSI. Accu-checks. Losartan 100 mg PO daily. Optimization of BP with IV Hydralazine. ASA and Statin therapy. Pain management prn. Started on soft mechanical diet. DVT prophylaxis. Additional plan as per the hospital course. Dietary Evaluation Review Recommendations by RD: Dietary education by RD Comments: 1) Initiate Nephro-Zaida @ 1 tb qd 2) Advance to 60g [facility] [place] cardiac renal diet when medically feasible 3) Refer to outpatient RD/[facility] for diabetes education 4) Follow-up with nephrology and cardiology 4) Continue to monitor I&O, labs, and skin integrity Expected Outcomes/Goals: 1) appetite and labs to improve 2) diet to advance 3) f/u in 3-5 days Plan discussed with: Patient, BRIE Funes DO Feb 28, 2025 19:21
[2025-03-01 01:00] VITALS: BP 167/97; PULSE 98; RESP 17; TEMP 98.2; O2SAT 98
[2025-03-01 08:00] VITALS: PULSE 101; RESP 18; O2SAT 98
[2025-03-01 08:54] VITALS: BP 147/90; PULSE 101; RESP 18; TEMP 97.4; O2SAT 98
--- NOTE | 2025-03-01 11:07 | MEDREC ---
FORMERLY [facility], [facility]–1983 ASP Intervention Section I FORMERLY [facility], [facility]–1983 ASP Intervention: Review courses of therapy (PLEASE CONSIDER REVIEWING COURSE OF THERAPY BASED ON CULTURE RESULTS ) CLEMENCIA NASCIMENTO PHARMACIST Mar 01, 2025 11:07
[2025-03-01 12:59] VITALS: BP 168/96; PULSE 101; RESP 18; TEMP 98; O2SAT 97
[2025-03-01 14:36] LABS: Hematocrit 34.2 % (41.0-53.0); Hemoglobin 11.4 g/dL (13.5-17.5); Mean Corpuscular Hemoglobin 28.1 pg (28.0-32.0); Mean Corpuscular Volume 84.3 fL (80.0-100.0)
[2025-03-01 14:50] LABS: Alanine Aminotransferase 25 U/L (7-40); Albumin 3.5 g/dL (3.2-4.8); Anion Gap 12 (5-15); BUN/Creatinine Ratio 9.4 (10.0-20.0); Blood Urea Nitrogen 20 mg/dL (9-23); Potassium 3.8 mmol/L (3.5-5.1); Sodium 140 mmol/L (136-145); Total Protein 7.2 g/dL (5.7-8.2)
[2025-03-01 14:51] LABS: Bilirubin, Total 0.4 mg/dL (0.2-1.0)
[2025-03-01 14:52] LABS: Alkaline Phosphatase 129 U/L (46-116); Calcium 8.1 mg/dL (8.7-10.4); Carbon Dioxide 19 mmol/L (20-31); Chloride 109 mmol/L (98-107); Glucose 189 mg/dL (74-106); Total Cells Counted 100.0 (100)
[2025-03-01 14:53] LABS: Anisocytosis Slight
--- NOTE | 2025-03-01 15:01 | DVHPN2 ---
Reviewed: Care Plan, H&P, Labs, Medications, Previous Orders, Radiology Changes from previous H/P or p: No Changes General: Per HPI Objective Vitals Vital Signs Date Time Temp Pulse Resp B/P (MAP) Pulse Ox O2 Delivery O2 Flow Rate FiO2 03/01/25 12:59 98.0 101 18 168/96 (120) 97 98.0 03/01/25 08:00 Room Air* 0 21 Intake/Output Intake and Output 03/01/25 07:00 Intake Total 2458 ml Balance 2458 ml Intake Oral 2358 ml IV Total 100 ml # Voids 3 # Bowel Movements 4 General Appearance: Alert, Oriented X3, Cooperative Cardiovascular: Normal S1, Normal S2 Abdomen: Soft Medications Current Medications Medications Dose Ordered Sig/Ilene Route Start Time Stop Time Status Last Admin Dose Admin Acetaminophen 325 mg Q4HP PRN PO 02/25/25 22:45 Heparin Sodium (Porcine) 5,000 units Q12HR SC 02/26/25 10:00 03/01/25 10:39 5,000 UNITS Ceftriaxone Sodium 50 ml @ 100 mls/hr DAILY@0000 IV 02/27/25 00:00 03/01/25 00:01 100 MLS/HR Metronidazole 100 ml @ 100 mls/hr Q8HR IV 02/26/25 06:00 03/01/25 05:31 100 MLS/HR Diagnostic Test (Pha) 1 strip ACHS 02/26/25 07:00 02/28/25 21:53 1 STRIP Insulin Human Regular ACHS SC 02/26/25 07:00 Dextrose 50 ml UD PRN IV 02/26/25 05:15 Losartan Potassium 100 mg DAILY PO 02/26/25 10:00 03/01/25 10:32 100 MG Atorvastatin Calcium 20 mg DAILY PO 02/26/25 10:00 03/01/25 10:33 20 MG Aspirin 81 mg DAILY PO 02/26/25 10:00 03/01/25 10:00 81 MG Hydralazine HCl 10 mg Q4HPRN PRN IV 02/28/25 16:45 03/01/25 12:23 10 MG Laboratory Results Laboratory Tests 03/01/25 14:13 Chemistry Test 03/01/25 14:13 Albumin 3.5 g/dL (3.2-4.8) Calcium Level 8.1 mg/dL (8.7-10.4) L Total Protein 7.2 g/dL (5.7-8.2) LFT Test 03/01/25 14:13 Alanine Aminotransferase (ALT) 25 U/L (7-40) Alkaline Phosphatase 129 U/L (46-116) H Aspartate Amino Transferase (AST) 37 U/L (13-40) Total Bilirubin 0.4 mg/dL (0.2-1.0) Urinalysis Test 02/25/25 23:00 Urine Color Dark-orange (Yellow) Urine Clarity Turbid (Clear) H Urine pH 6.0 (5.0-9.0) Urine Specific [place] 1.014 (1.001-1.035) Urine Protein 3+ (Negative) H Urine Ketones Negative (Negative) Urine Blood Negative /uL (Negative) Urine Nitrite Negative (Negative) Urine Bilirubin Negative (Negative) Urine Urobilinogen Normal mg/dL (Negative) Urine Leukocyte Esterase Negative /uL (Negative) Urine RBC 22 /hpf (0 - 3) Urine Microscopic WBC 9 /HPF (0-3) H Urine Squamous Epithelial Cells None seen /hpf (<5) Urine Amorphous Crystals Few /hpf (None Seen) Urine Bacteria None seen /hpf (None Seen) Urine Hyaline Casts Mod /lpf (0 - 2) Urine Glucose 4+ mg/dL (Normal) H Microbiology Microbiology Date/Time Source Procedure Growth Status 02/26/25 02:34 Stool Stool Culture - Preliminary Shigella Species Resulted 02/26/25 02:34 Stool Shiga Toxin I & II - Final Resulted 02/25/25 23:00 Voided Urine Urine Culture - Final Complete 02/25/25 22:01 Blood Blood Culture - Preliminary NO GROWTH AFTER 72 HOURS OF INCUBATION. Resulted Labs and/or images reviewed: Labs reviewed by me, Image(s) reviewed by me Assessment/Plan Assessment/Plan Mr. Clemons is a 55-year-old male with prior medical history of hypertension, type 2 diabetes mellitus, CKD stage 4, and hyperlipidemia who presents to the ED with chief complaint of flu-like symptoms. The patient states that on Sunday he had sudden onset of chills, fever measured at 102 F, persistent diarrhea, to medical episodes, body aches, and fatigue. He states these symptoms have slightly improved however he continues to have multiple episodes of diarrhea and achy generalized abdominal pain, intensity 7/10, without aggravating or relieving factors every day, reporting more than 8 episodes of diarrhea today alone. Additionally, he states to have dysuria, strong smelling urine, and changes in urinary color. He denies chest pain, rectal bleeding, palpitations, loss of consciousness, nausea, persistent vomiting, further febrile episodes, and other symptoms. Due to his symptoms and persistence of diarrhea the sought patient sought medical care at the emergency department. On evaluation in the ED, the patient was afebrile and vitals were stable. Initial labs show normocytic anemia, elevated monocytes, mild hyponatremia, creatinine 3.51, BUN 54, hyperglycemia, hypophosphatemia, and A1c of 7.5. UA is significant for UTI. The patient is influenza A, B, and COVID negative. Acute Infectious Gastroenteritis Dehydration due to above - NS 500 cc bolus once - NS 250 cc bolus once - Ceftriaxone 1 g IV daily - Metronidazole 500 mg IV q.8 hours - C diff testing has been ordered as the patient has been on 3 different antibiotic regimens since November - Blood cultures were ordered - Clear liquid diet initially. advance diet as tolerated LEDY on CDK stage 4 due to VMN/hemodynamically mediated - Monitor renal function - Avoid nephrotoxic drugs Acute cystitis with microscopic hematuria - Urine culture has been ordered - Ceftriaxone 1 g IV daily Mild hyponatremia, likely due to hypovolemia - Monitor sodium levels Hypophosphatemia, 2.1 - Replenish Normocytic Anemia, likely due to chronic disease -Monitor H and H Uncontrolled type 2 diabetes mellitus with hyperglycemia, HbA1c 7.5 -Mild SSI -Accu-cheks Hyperlipidemia - Continue Rosuvastatin 10 mg PO daily Hypertension - Continue Losartan 100 mg PO daily Diet: Clear liquid diet DVT prophylaxis: Heparin 5000 units q12 hours sc GI prophylaxis: Not indicated due to possible risk of C diff Plan discussed with: Patient My Orders Orders - JANI CARRIZALES DO Procedure Category Date Status Time Apply: SPENCER 02/28/25 In Process 15:05 Mechanical Soft Diet DIET 02/28/25 Transmitted Dinner Hydralazine Injection PHA 02/28/25 In Process (Apresoline Inject 16:45 Date of Service: Feb 28, 2025 Billing Provider: JANI CARRIZALES DO Common Visit Codes: [id number] INP/OBS CARE(HIGH) JANI CARRIZALES DO Mar 01, 2025 15:01
--- NOTE | 2025-03-01 15:03 | DVHDS2 ---
Discharge Summary Date of Admission Feb 25, 2025 at 22:39 Date of Discharge: Mar 01, 2025 Labs/Diagnostic Data: Laboratory Results Test 03/01/25 14:13 02/28/25 21:49 02/26/25 06:30 02/26/25 02:34 White Blood Count 14.5 10^3/uL (4.4-10.8) Red Blood Count 4.06 10^6/uL (4.5-5.90) Hemoglobin 11.4 g/dL (13.5-17.5) Hematocrit 34.2 % (41.0-53.0) Mean Corpuscular Volume 84.3 fL (80.0-100.0) Mean Corpuscular Hemoglobin 28.1 pg (28.0-32.0) Mean Corpuscular Hemoglobin Concent 33.4 g/dL (32.0-36.0) Red Cell Distribution Width 15.5 % (11.8-14.3) Platelet Count 329 10^3/uL (140-450) Mean Platelet Volume 8.3 fL (6.9-10.8) Neutrophils (%) (Auto) % (37.0-80.0) Lymphocytes (%) (Auto) % (10.0-50.0) Monocytes (%) (Auto) % (0.0-12.0) Basophils (%) (Auto) % (0.0-2.0) Neutrophils # (Auto) 10 ^3/uL (1.6-8.6) Lymphocytes # (Auto) 10 ^3/uL (0.4-5.4) Monocytes # (Auto) 10 ^3/uL (0-1.3) Differential Total Cells Counted 100.0 (100) Neutrophils % (Manual) 60 (37.0-80.0) Band Neutrophils % (Manual) 6 Lymphocytes % (Manual) 22 (10.0-50.0) Monocytes % (Manual) 5 (0-12) Eosinophils % (Manual) 4 (0-7) Basophils % (Manual) 0 (0.0-2.0) Metamyelocytes % (manual) 1 Myelocytes % (Manual) 0 Promyelocytes % (Manual) 0 Blast Cells % (Manual) 0 Reactive Lymphocytes 2 Platelet Estimate Adequate Anisocytosis (manual) Slight Sodium Level 140 mmol/L (136-145) Potassium Level 3.8 mmol/L (3.5-5.1) Chloride Level 109 mmol/L (98-107) Carbon Dioxide Level 19 mmol/L (20-31) Anion Gap 12 (5-15) Blood Urea Nitrogen 20 mg/dL (9-23) Creatinine 2.12 mg/dL (0.700-1.30) Glomerular Filtration Rate Calc 36 mL/min (>90) BUN/Creatinine Ratio 9.4 (10.0-20.0) Serum Glucose 189 mg/dL (74-106) Calcium Level 8.1 mg/dL (8.7-10.4) Total Bilirubin 0.4 mg/dL (0.2-1.0) Aspartate Amino Transferase (AST) 37 U/L (13-40) Alanine Aminotransferase (ALT) 25 U/L (7-40) Alkaline Phosphatase 129 U/L (46-116) Total Protein 7.2 g/dL (5.7-8.2) Albumin 3.5 g/dL (3.2-4.8) POC Glucose 162 mg/dl (70-106) Eosinophils (%) (Auto) 1.9 % (0.0-7.0) Eosinophils # (Auto) 0.2 10 ^3/uL (0-0.8) Basophils # (Auto) 0 10 ^3/uL (0-0.2) Nucleated Red Blood Cells 0.0 % Hepatitis B Surface Antigen Negative (Negative) Hepatitis C Antibody Negative (Negative) Stool for White Cells Many Test 02/25/25 23:21 02/25/25 23:00 02/25/25 21:59 02/25/25 18:31 Influenza Type A Antigen Negative (Negative) Influenza Type B Antigen Negative (Negative) Urine Color Dark-orange (Yellow) Urine Clarity Turbid (Clear) Urine pH 6.0 (5.0-9.0) Urine Specific [place] 1.014 (1.001-1.035) Urine Protein 3+ (Negative) Urine Ketones Negative (Negative) Urine Blood Negative /uL (Negative) Urine Nitrite Negative (Negative) Urine Bilirubin Negative (Negative) Urine Urobilinogen Normal mg/dL (Negative) Urine Leukocyte Esterase Negative /uL (Negative) Urine RBC 22 /hpf (0 - 3) Urine Microscopic WBC 9 /HPF (0-3) Urine Squamous Epithelial Cells None seen /hpf (<5) Urine Amorphous Crystals Few /hpf (None Seen) Urine Bacteria None seen /hpf (None Seen) Urine Hyaline Casts Mod /lpf (0 - 2) Urine Glucose 4+ mg/dL (Normal) Urine Opiates Screen Neg (NEGATIVE) Urine Fentanyl Screen Neg (NEGATIVE) Urine Barbiturates Screen Neg (NEGATIVE) Urine Phencyclidine Screen Neg (NEGATIVE) Urine Amphetamines Screen Neg (NEGATIVE) Urine Benzodiazepines Screen Neg (NEGATIVE) Urine Cocaine Screen Neg (NEGATIVE) Urine Cannabinoids Screen Neg (NEGATIVE) Lactic Acid Level 1.2 mmol/L (0.4-2.0) SARS-CoV-2 Antigen (Rapid) Negative (NEGATIVE) Test 02/25/25 16:01 Hemoglobin A1c 7.5 % A1C (<5.7) Phosphorus Level 2.1 mg/dL (2.4-5.1) Magnesium Level 2.5 mg/dL (1.6-2.6) Direct Bilirubin 0.2 mg/dL (<0.3) Vitamin B12 Level 1764 pg/mL (211-911) Vitamin D 25-Hydroxy 35.1 ng/mL (30.0-100) Thyroid Stimulating Hormone (TSH) 1.11 uIU/mL (0.55-4.78) Other Laboratory Tests 03/01/25 14:13 Brief Hx & Hospital Course: Mr. Clemons is a 55-year-old male with prior medical history of hypertension, type 2 diabetes mellitus, CKD stage 4, and hyperlipidemia who presents to the ED with chief complaint of flu-like symptoms. The patient states that on Sunday he had sudden onset of chills, fever measured at 102 F, persistent diarrhea, to medical episodes, body aches, and fatigue. He states these symptoms have slightly improved however he continues to have multiple episodes of diarrhea and achy generalized abdominal pain, intensity 7/10, without aggravating or relieving factors every day, reporting more than 8 episodes of diarrhea today alone. Additionally, he states to have dysuria, strong smelling urine, and changes in urinary color. He denies chest pain, rectal bleeding, palpitations, loss of consciousness, nausea, persistent vomiting, further febrile episodes, and other symptoms. Due to his symptoms and persistence of diarrhea the sought patient sought medical care at the emergency department. On evaluation in the ED, the patient was afebrile and vitals were stable. Initial labs show normocytic anemia, elevated monocytes, mild hyponatremia, creatinine 3.51, BUN 54, hyperglycemia, hypophosphatemia, and A1c of 7.5. UA is significant for UTI. The patient is influenza A, B, and COVID negative. Acute Infectious Gastroenteritis Dehydration due to above - NS 500 cc bolus once - NS 250 cc bolus once - Ceftriaxone 1 g IV daily - Metronidazole 500 mg IV q.8 hours - C diff testing has been ordered as the patient has been on 3 different antibiotic regimens since November - Blood cultures were ordered - Clear liquid diet initially. advance diet as tolerated LEDY on CDK stage 4 due to VMN/hemodynamically mediated - Monitor renal function - Avoid nephrotoxic drugs Acute cystitis with microscopic hematuria - Urine culture has been ordered - Ceftriaxone 1 g IV daily Mild hyponatremia, likely due to hypovolemia - Monitor sodium levels Hypophosphatemia, 2.1 - Replenish Normocytic Anemia, likely due to chronic disease -Monitor H and H Uncontrolled type 2 diabetes mellitus with hyperglycemia, HbA1c 7.5 -Mild SSI -Accu-cheks Hyperlipidemia - Continue Rosuvastatin 10 mg PO daily Hypertension - Continue Losartan 100 mg PO daily discharged to home symptoms improve pt will f/u with outpatient nephrology of his choice Diet: Clear liquid diet DVT prophylaxis: Heparin 5000 units q12 hours sc GI prophylaxis: Not indicated due to possible risk of C diff Condition at Discharge: Fair Final Diagnosis/Problems List see above Discharge Disposition: Home Discharge Instruct/Medications Diet: Cardiac 2g Na,low cholest Activity: No Restrictions, As Tolerated Scheduled Aspirin (Aspir-Low), 81 MG PO DAILY, (Reported) Calcium Acetate (Phosphate Bin (Calcium Acetate), 667 MG PO BID, (Reported) Cefdinir (Cefdinir), 1 CAP PO BID Empagliflozin (Jardiance), 25 MG PO DAILY, (Reported) Famotidine (Famotidine), 20 MG PO DAILY, (Reported) Fluticasone Propionate (Fluticasone Propionate), 50 MCG BERNARD DAILY, (Reported) Glipizide (Glipizide), 10 MG PO DAILY, (Reported) Losartan Potassium (Losartan Potassium), 100 MG PO DAILY, (Reported) Rosuvastatin Calcium (Crestor), 10 TAB PO DAILY, (Reported) Sildenafil Citrate (Viagra), 1 TAB PO EVERY OTHER DAY, (Reported) Miscellaneous Medications B-Complex Vitamins (B Complex), 1 OR, (Reported) Tirzepatide (Mounjaro), 5 MG SC, (Reported) Discharge Statement: "Patient was advised to return to the ER or call 911 if any headaches, dizziness, shortness of breath, chest pain, abdominal pain, bleeding, fevers, or worsening of medical condition. Patient was counseled about treatment plan, medications, possible side effects, patientverbalized understanding. All questions were answered to the best of my ability. This discharge took greater then 30 minutes in planning, reviewing documentation, counseling the patient, and discussing with other team members." ASSESSMENT ASSESSMENT Assessment Date of Service: Mar 01, 2025 Billing Provider: JANI CARRIZALES DO Common Visit Codes: 91201-WFK/OBS DISCH DAY >30min JANI CARRIZALES DO Mar 01, 2025 15:03
[2025-03-01 16:54] VITALS: BP 154/90; PULSE 101; RESP 18; TEMP 97.4; O2SAT 97
--- NOTE | 2025-03-01 17:24 | DVHPN2 ---
Progress Note - Dictate Date Seen: Mar 01, 2025 Has the PT tested + for MRSA If YES, has PT been informed?: No Medical Necessity Reason Pt with a Central, PICC or Fol: No Subjective Patient was seen and evaluated in follow up. No acute events overnight. Patient reports feeling better. Labs are remarkable for Creatinine 2.12 with BUN of 20. eGFR 36. vital signs Vital Sign Date Time Temp Pulse Resp B/P (MAP) Pulse Ox O2 Delivery O2 Flow Rate FiO2 03/01/25 16:54 97.4 101 18 154/90 (111) 97 97.4 03/01/25 08:00 Room Air* 0 21 Total Intake and Output 02/28/25 02/28/25 03/01/25 15:00 23:00 07:00 Intake Total 358 ml 1300 ml 800 ml Balance 358 ml 1300 ml 800 ml medications Current Medications Medications Dose Ordered Sig/Ilene Route Start Time Stop Time Status Last Admin Dose Admin Acetaminophen 325 mg Q4HP PRN PO 02/25/25 22:45 Heparin Sodium (Porcine) 5,000 units Q12HR SC 02/26/25 10:00 03/01/25 10:39 5,000 UNITS Ceftriaxone Sodium 50 ml @ 100 mls/hr DAILY@0000 IV 02/27/25 00:00 03/01/25 00:01 100 MLS/HR Metronidazole 100 ml @ 100 mls/hr Q8HR IV 02/26/25 06:00 03/01/25 15:59 100 MLS/HR Diagnostic Test (Pha) 1 strip ACHS 02/26/25 07:00 02/28/25 21:53 1 STRIP Insulin Human Regular ACHS SC 02/26/25 07:00 Dextrose 50 ml UD PRN IV 02/26/25 05:15 Losartan Potassium 100 mg DAILY PO 02/26/25 10:00 03/01/25 10:32 100 MG Atorvastatin Calcium 20 mg DAILY PO 02/26/25 10:00 03/01/25 10:33 20 MG Aspirin 81 mg DAILY PO 02/26/25 10:00 03/01/25 10:00 81 MG Hydralazine HCl 10 mg Q4HPRN PRN IV 02/28/25 16:45 03/01/25 12:23 10 MG objective Vitals and nursing notes reviewed. General: In no acute distress. HEENT: Normocephalic, atraumatic, normal reactive pupils, EOM intact, pink conjunctiva, pink dry mucous membrane. Respiratory/pulmonary: Bilateral chest expansion, no pain on palpation of chest wall, clear lungs bilaterally, vesicular murmurs present in almost all lung tavarez, no associated crackles or wheezes. Cardiovascular: Normal RRR, normal S1 and S2, no murmurs Abdomen: Abdomen nondistended, increased bowel sounds, soft, there is no pain to palpation in any of the abdominal quadrants, no palpable masses. Extremities: No deformities, there is no peripheral edema present at the lower extremities, normal pulses Skin: No rashes or pruritus, there is no sacral edema present at this time. Neurological: Intact cranial nerves with no focal neurologic deficits. Patient is alert and oriented in person place and time. laboratory and microbiology Laboratory Tests 03/01/25 14:13 Test 03/01/25 14:13 Range/Units Serum Glucose 189 H 74-106 mg/dL Problem List Acute infectious Gastroenteritis LEDY on CKD Stage 4 due to VMN Acute cystitis with microscopic hematuria Mild hyponatremia Hypophosphatemia Normocytic Anemia, likely due to chronic disease Uncontrolled type 2 DM with hyperglycemia Hyperlipidemia Hypertension Assessment/Plan DC planning in progress. F/u Urine Protein/Creatinine ratio. Cleared for discharge from Nephrology standpoint with outpatient follow up recommended. Dietary Evaluation Review Recommendations by RD: Dietary education by RD Comments: 1) Initiate Nephro-Zaida @ 1 tb qd 2) Advance to 60g [facility] [place] cardiac renal diet when medically feasible 3) Refer to outpatient RD/[facility] for diabetes education 4) Follow-up with nephrology and cardiology 4) Continue to monitor I&O, labs, and skin integrity Expected Outcomes/Goals: 1) appetite and labs to improve 2) diet to advance 3) f/u in 3-5 days Plan discussed with: Patient, Other (RN) BRIE MCNAMARA DO Mar 01, 2025 17:24
== END 2025-03-01 19:45 | disposition home or self-care (01) | DRG 249 ==
LOC: ER 15:08 → OVERFLOW 22:39 → WEST WING 23:29 → EAST 02-28 12:37
PROVIDERS: ADMIT Internal Medicine; ATTEND Internal Medicine
DX: A09 Infectious gastroenteritis and colitis, unspecified (principal); N17.0 Acute kidney failure with tubular necrosis; E83.39 Other disorders of phosphorus metabolism; E87.1 Hypo-osmolality and hyponatremia; D63.8 Anemia in other chronic diseases classified elsewhere; I12.0 Hypertensive chronic kidney disease with stage 5 chronic kidney disease or end stage renal disease; G90.9 Disorder of the autonomic nervous system, unspecified; N18.6 End stage renal disease; Z20.822 Contact with and (suspected) exposure to COVID-19; E11.22 Type 2 diabetes mellitus with diabetic chronic kidney disease; N30.01 Acute cystitis with hematuria; E86.0 Dehydration; E11.65 Type 2 diabetes mellitus with hyperglycemia; E86.1 Hypovolemia; E78.5 Hyperlipidemia, unspecified; Z83.3 Family history of diabetes mellitus; Z88.8 Allergy status to other drugs, medicaments and biological substances; Z79.899 Other long term (current) drug therapy; Z82.5 Family history of asthma and other chronic lower respiratory diseases; Z82.49 Family history of ischemic heart disease and other diseases of the circulatory system; Z81.8 Family history of other mental and behavioral disorders; Z80.3 Family history of malignant neoplasm of breast
CPT/HCPCS: 36415; 71046; 80048; 80053; 80076; 80307; 81001; 82306; 82607; 82962; 83036; 83605; 83735; 84100; 84443; 85007; 85025; 85027; 85048; 86803; 87040; 87045; 87077; 87086; 87186; 87340; 87426; 87427; 87493; 87804; 93005; 96360; G0378; J1815; J2470; J3490

== ENCOUNTER 2025-04-28 10:57 | Outpatient (CLI) | payer MEDICAID ==
[~2025-04-28 10:57] MED LIST changes: +ASPI-543 PO; +B-COCAP34 OR; +CALC667C PO; +EMPA1TAB3 PO; +FAMO-12 PO; +FLUT0.05 NAS; +GLIP10TA9 PO; +LOSA-535 PO; +ROSU10TA16 PO; +SILD100T PO; +TIRZ5INJ SC
[2025-04-28] MEDS ORDERED: ALBUTEROL SULF 2.5 MG/0.5ML(0.5%) NEB SOLN ONE (11:11)
== END 2025-04-28 17:00 | disposition home or self-care (01) ==
LOC: RT 10:57
PROVIDERS: ATTEND Internal Medicine Pulmonary Disease
DX: R06.09 Other forms of dyspnea (principal)
CPT/HCPCS: 94060; 94727; 94729